=== PATIENT | female | born 1960 | race Caucasian/White ===

== ENCOUNTER 2022-05-16 14:06 | Emergency (ER) | payer BC ==
[~2022-05-16] VITALS: Ht 167.6 cm; Wt 59.0 kg
[2022-05-16 14:06] VITALS: BP 125/57
--- NOTE | 2022-05-16 14:34 | NUR ---
MD JAMIL AT BEDSIDE FOR EVALUATION
[2022-05-16] MEDS ORDERED: NACL 0.9% 1,000 ML IV ONE (14:40)
[2022-05-16 14:57] LABS: BASOPHILS % (AUTO) 0.5 % (0.0-2.0); EOSINOPHILS # (AUTO) 0.1 K/uL (0-0.4); EOSINOPHILS % (AUTO) 0.9 % (0.0-4.0); HEMATOCRIT 40.7 % (36-48); HEMOGLOBIN 13.6 g/dL (12.0-16.0); LYMPHOCYTES # (AUTO) 0.7 K/uL (2.5-16.5); LYMPHOCYTES % (AUTO) 10.1 % (20.5-51.1); MEAN CORPUSCULAR HEMOGLOBIN 29 pg (27-31); MEAN CORPUSCULAR HGB CONC 34 g/dL (33-37); MEAN CORPUSCULAR VOLUME 85.9 fL (80-94); MONOCYTES # (AUTO) 0.4 K/uL (0.8-1.0); MONOCYTES % (AUTO) 6.6 % (1.7-9.3); NEUTROPHILS # (AUTO) 5.6 K/uL (1.8-7.7); NEUTROPHILS % (AUTO) 81.9 % (42.2-75.2); PLATELET COUNT (AUTO) 278 K/uL (140-450); RED BLOOD CELL COUNT(AUTO) 4.74 MIL/uL (4.20-5.40); RED CELL DISTRIBUTION WIDTH 13.7 % (11.6-13.7); WHITE BLOOD COUNT (AUTO) 6.8 K/uL (4.8-10.8)
--- NOTE | 2022-05-16 15:08 | NUR ---
XRAY AT BEDSIDE
[2022-05-16 15:24] LABS: ALBUMIN 3.3 g/dL (3.4-5.0); ANION GAP 15.5 (8-16); ASPARTATE AMINOTRANSFERASE 20 U/L (15-37); CARBON DIOXIDE 25.7 mmol/L (21-32); CHLORIDE 100 mmol/L (98-107); GFR ARICAN-AMERICAN 73 mL/min (>90); GLUCOSE 223 mg/dL (74-106); POTASSIUM 3.2 mmol/L (3.5-5.1); SODIUM SERUM 138 mmol/L (136-145); TOTAL BILIRUBIN 0.7 mg/dL (0.0-1.0); UREA NITROGEN, BLOOD 19 mg/dL (7-18)
--- NOTE | 2022-05-16 15:51 | NUR ---
61YO FEMALE PT BIBA FROM HOME C/O WITNEESED SYNCOPE. PT STATES FALLING BACKWARDS AND HITTING SHOULDER. DENIES INJURY TO HEAD. NO VISIBLE INJURY NOTED. DENIES DIZZINESS N/V/D, CHEST PAIN OR SOB. PT AAOX4, NO VISIBLE DISTRESS.RESPIRATIONS EVEN AND UNLABORED. ON SHIFT SUPERINTENDENT PMH:HTN, DM, LUPUS, VERTIGO ALLERGIES:PCN
[2022-05-16] MEDS ORDERED: ACETAMINOPHEN 325 MG TAB PO ONE (18:25)
[2022-05-16] MEDS ORDERED: POTASSIUM CHLORIDE 10 MEQ TABER PO ONE (18:25)
--- NOTE | 2022-05-16 18:40 | NUR ---
IV removed, catheter intact and site benign. Applied folded 4x4 gauze and tape to stop bleeding.
[2022-05-16 18:50] VITALS: BP 125/57
--- NOTE | 2022-05-16 18:50 | NUR ---
Patient discharged with v/s stable. Written and verbal after care instructions FOR REHYDRATION AND SYNCOPE given and explained. Patient verbalized understanding. Ambulatory with steady gait. All questions addressed prior to discharge. Advised to follow up with PMD.
--- NOTE | 2022-05-16 18:51 | NUR ---
The patient's care was reviewed and supervised by Pinky Forde RN.
[2022-05-17] MEDS ORDERED: LIDOCAINE 5% 1 EA PATCH TP SCH (09:00)
== END 2022-05-16 18:50 | disposition home or self-care (01) ==
LOC: MED 14:06
DX: R55 Syncope and collapse (principal); E87.6 Hypokalemia; M54.50 Low back pain, unspecified; E11.9 Type 2 diabetes mellitus without complications; I10 Essential (primary) hypertension; E78.5 Hyperlipidemia, unspecified; Z88.0 Allergy status to penicillin; Z90.710 Acquired absence of both cervix and uterus
CPT/HCPCS: 36415; 71045; 80053; 84484; 85025; 93005; 96360; 99285; J7030